=== PATIENT | female | born 1960 | race Caucasian/White ===

== ENCOUNTER 2024-04-16 07:43 | Outpatient (CLI) | payer BC | END 2024-04-16 07:44 | disposition home or self-care (01) | LOC: CSHRAD 07:43 | PROVIDERS: ATTEND Surgery | DX: K44.9 Diaphragmatic hernia without obstruction or gangrene (principal); K22.9 Disease of esophagus, unspecified; K21.9 Gastro-esophageal reflux disease without esophagitis | CPT/HCPCS: 74220 ==

== ENCOUNTER 2024-04-17 07:53 | Outpatient (CLI) | payer BC, OTHER ==
[2024-04-17 08:55] LABS: #Basophils 0.06 10x3/uL (0.0-0.2); #Eosinphils 0.12 10x3/uL (0.0-0.5); #Monocytes 0.27 10x3/uL (0.0-1.1); #Neutrophils 2.41 10x3/uL (1.5-8.4); %Basophils 1.4 % (0.0-2.0); %Eosinophils 2.7 % (0.0-6.0); %Lymphocytes 34.6 % (18.0-47.0); %Monocytes 6.2 % (0.0-10.0); %Neutrophils 54.9 % (40.0-75.0); Hematocrit 41.2 % (34.9-44.5); Hemoglobin 13.7 g/dL (12.0-15.5); Mean Corpuscular HGB CONC 33.3 g/dL (32.0-36.0); Mean Corpuscular Hemoglobin 27.7 pg (27.0-33.0); Mean Corpuscular Volume 83.4 fL (81.6-98.3); Mean Platelet Volume 9.9 fL (7.4-10.4); Platelet Count 269 10x3/uL (150-450); RBC Distribution Width 12.6 % (11.5-14.5); Red Blood Cell (RBC) Count 4.94 10x6/uL (3.90-5.03); White Blood Cell (WBC) Count 4.4 10x3/uL (3.5-10.5)
[2024-04-17 09:10] LABS: Anion Gap 11 mmol/L (10-20); BUN (Urea Nitrogen) 10 mg/dL (9.8-20.1); Calc. Creatinine Clearance 0 mL/min (70-130); Calcium 9.5 mg/dL (7.8-10.44); Carbon Dioxide 28 mmol/L (23-31); Chloride 109 mmol/L (98-107); Estimated GFR 83; Glucose 88 mg/dL (80-115); Potassium 4.2 mmol/L (3.5-5.1); Sodium 144 mmol/L (136-145)
== END 2024-04-17 07:54 | disposition home or self-care (01) ==
LOC: CSHLAB 07:53
PROVIDERS: ATTEND Surgery
DX: Z01.812 Encounter for preprocedural laboratory examination (principal); K44.9 Diaphragmatic hernia without obstruction or gangrene
CPT/HCPCS: 80048; 80061; 85025

== ENCOUNTER 2024-04-22 07:06 | Day surgery (SDC) | payer BC ==
[2024-04-17 08:25] VITALS: BMI 22.8
[2024-04-22] MEDS ORDERED: fentaNYL 50 mcg/mL 1 mL Vial ONE ×2 (07:57→10:22)
[2024-04-22] MEDS ORDERED: Rocuronium Bromide 10 MG/ML (10ML VIAL) ONE (07:57)
[2024-04-22] MEDS ORDERED: Lidocaine 1% PF 5 ML VIAL ONE (07:57)
[2024-04-22] MEDS ORDERED: PROPOFOL 20 ML ONE (07:57)
[2024-04-22] MEDS ORDERED: Ondansetron PF 4 MG/2 ML Vial ONE ×2 (08:05→09:57)
[2024-04-22] MEDS ORDERED: Ketorolac Tromethamine 30 MG (1 mL) VIAL ONE ×2 (08:06→10:04)
[2024-04-22] MEDS ORDERED: SUGAMMADEX SODIUM 200 MG/2 ML VIAL ONE ×2 (08:10→09:58)
[2024-04-22] MEDS ORDERED: CEFAZOLIN 2 GM VIAL ONE (08:27)
[2024-04-22] MEDS ORDERED: Bupivacaine/Epinephrine 0.25% 30 ML VIAL ONE ×2 (08:28→09:18)
[2024-04-22] MEDS ORDERED: Midazolam HCl 2 mg/2 ml Vial ONE (08:35)
[2024-04-22] MEDS ORDERED: Dexamethasone 4 mg/ml Vial ONE (09:04)
[2024-04-22] MEDS ORDERED: PHENYLEPHRINE-NS 100 MCG/ML 10 ML SYRINGE ONE (09:10)
[2024-04-22] MEDS ORDERED: ePHEDrine Sulfate 50 MG/10 ML VIAL ONE (09:14)
[2024-04-22] MEDS ORDERED: HYDROcodone/Acetaminophen 5/325 mg Tablet ONE (11:17)
[2024-04-22] MEDS ORDERED: traMADol HCl 50 MG TAB ONE (11:32)
== END 2024-04-22 11:58 | disposition home or self-care (01) ==
LOC: CSHSDC 07:06
PROVIDERS: ATTEND Surgery
PROC: 0BQT3ZZ Repair Diaphragm, Percutaneous Approach (ICD-10-PCS; principal; 2024-04-22)
DX: K44.9 Diaphragmatic hernia without obstruction or gangrene (principal); K21.9 Gastro-esophageal reflux disease without esophagitis; Z98.51 Tubal ligation status; Z90.49 Acquired absence of other specified parts of digestive tract; Z98.890 Other specified postprocedural states; Z79.899 Other long term (current) drug therapy; Z88.5 Allergy status to narcotic agent; Z91.040 Latex allergy status
CPT/HCPCS: J1100; J1885; J2250; J2405; J2704; J3010